=== PATIENT | male | born 1965 | race Caucasian/White ===

== ENCOUNTER 2017-04-13 16:10 | Inpatient (IN) | payer OTHER ==
[2017-04-13] MEDS: KETOROLAC 30 MG INJ IV (16:30)
[2017-04-13 16:34] LABS: ADD MAN DIFF? NO
[2017-04-13 16:36] LABS: WHITE BLOOD COUNT 8.9 10^3/ul (4.8-10.8)
[2017-04-13 16:36] LABS: BASOPHILS % 0.2 % (0.0-2.0); EOSINOPHILS # 0.2 10^3/ul (0.0-0.5); EOSINOPHILS % 1.8 % (0.0-7.0); HEMATOCRIT 42.3 % (42.0-52.0); HEMOGLOBIN 14.8 g/dl (14.0-18.0); LYMPHOCYTES # 2.6 10^3/ul (0.8-2.9); LYMPHOCYTES % 28.7 % (15.0-51.0); MEAN CORPUSCULAR HEMOGLOBIN 30.5 pg (29.0-33.0); MEAN CORPUSCULAR VOLUME 87.2 fl (82.0-101.0); MEAN PLATELET VOLUME 10.1 fl (7.4-10.4); MONOCYTE # 0.7 10^3/ul (0.3-0.9); MONOCYTES % 7.5 % (0.0-11.0); NEUTROPHIL # 5.5 10^3/ul (1.6-7.5); NEUTROPHILS % 61.4 % (39.0-77.0); PLATELET COUNT 208 10^3/UL (140-415); RED BLOOD COUNT 4.85 10^6/ul (4.70-6.10); RED CELL DISTRIBUTION WIDTH 12.5 % (11.5-14.5)
[2017-04-13 16:53] LABS: ANION GAP 17 (8-16); BLOOD UREA NITROGEN 15 mg/dl (7-20); CALCIUM 9.6 mg/dl (8.4-10.2); CARBON DIOXIDE 28 mmol/L (21-31); CHLORIDE 104 mmol/L (97-110); CREATININE 0.73 mg/dl (0.61-1.24); GLUCOSE 111 mg/dl (70-220); POTASSIUM 3.9 mmol/L (3.5-5.1); SODIUM 145 mmol/L (135-144)
[2017-04-13 17:09] LABS: TROPONIN-I < 0.012 ng/ml (0.00-0.12)
[2017-04-13] MEDS ORDERED: NACL 0.9% 3 ML SYG IV (18:30)
[2017-04-13] MEDS ORDERED: ACETAMINOPHEN 325 MG TAB PO (18:30)
[2017-04-13] MEDS: HYDROCODONE/APAP (5/325) TAB PO (18:45)
[2017-04-13] MEDS: morphine 2 MG INJ IV ×2 (18:45→20:44)
[2017-04-13] MEDS: METOPROLOL 25 MG TAB PO (20:43)
[2017-04-13] MEDS: ATORVASTATIN 80 MG TAB PO (20:43)
[2017-04-13 21:56] LABS: CREATINE KINASE 34 IU/L (23-200)
[2017-04-13 22:09] LABS: CK INDEX 0.9
[2017-04-13 22:10] LABS: TROPONIN-I < 0.012 ng/ml (0.00-0.12)
[2017-04-14] MEDS: morphine 2 MG INJ IV ×5 (00:38→20:06)
[2017-04-14 09:04] LABS: ADD MAN DIFF? NO
[2017-04-14] MEDS: ASPIRIN (EC) 81 MG TAB PO (09:04)
[2017-04-14] MEDS: CLOPIDOGREL 75 MG TAB PO (09:04)
[2017-04-14] MEDS: METOPROLOL 25 MG TAB PO ×2 (09:04→20:07)
[2017-04-14] MEDS: HYDROCODONE/APAP (5/325) TAB PO (09:04)
[2017-04-14] MEDS: LISINOPRIL 10 MG TAB PO (09:04)
[2017-04-14] MEDS: ENOXAPARIN 40 MG/0.4 ML SYG SC (09:09)
[2017-04-14 09:12] LABS: WHITE BLOOD COUNT 9.9 10^3/ul (4.8-10.8)
[2017-04-14 09:12] LABS: BASOPHILS % 0.3 % (0.0-2.0); EOSINOPHILS # 0.2 10^3/ul (0.0-0.5); EOSINOPHILS % 2.4 % (0.0-7.0); HEMATOCRIT 35.5 % (42.0-52.0); HEMOGLOBIN 12.5 g/dl (14.0-18.0); LYMPHOCYTES # 1.8 10^3/ul (0.8-2.9); MEAN CORPUSCULAR HEMOGLOBIN 31.2 pg (29.0-33.0); MEAN CORPUSCULAR HGB CONC 35.2 g/dl (32.0-37.0); MEAN CORPUSCULAR VOLUME 88.5 fl (82.0-101.0); MEAN PLATELET VOLUME 10.4 fl (7.4-10.4); MONOCYTE # 0.8 10^3/ul (0.3-0.9); MONOCYTES % 7.9 % (0.0-11.0); PLATELET COUNT 168 10^3/UL (140-415); RED BLOOD COUNT 4.01 10^6/ul (4.70-6.10); RED CELL DISTRIBUTION WIDTH 12.9 % (11.5-14.5)
[2017-04-14 09:31] LABS: CREATINE KINASE 30 IU/L (23-200)
[2017-04-14 09:37] LABS: HEMOGLOBIN A1C 5.4 % (0-5.9)
[2017-04-14 09:41] LABS: CK INDEX 0.8
[2017-04-14 09:43] LABS: ALANINE AMINOTRANSFERASE 43 IU/L (13-69); ALBUMIN 3.4 g/dl (3.3-4.9); ALBUMIN/GLOBULIN RATIO 1.17; ALKALINE PHOSPHATASE 62 IU/L (42-121); ANION GAP 11 (8-16); ASPARTATE AMINO TRANSFERASE 30 IU/L (15-46); BILIRUBIN,INDIRECT 0.4 mg/dl (0-1.1); BILIRUBIN,TOTAL 0.4 mg/dl (0.2-1.3); BLOOD UREA NITROGEN 16 mg/dl (7-20); CALCIUM 8.9 mg/dl (8.4-10.2); CARBON DIOXIDE 29 mmol/L (21-31); CHLORIDE 105 mmol/L (97-110); CHOL/HDL RATIO 3.1 RATIO; CHOLESTEROL 128 mg/dl (100-200); CK-MB 0.24 ng/ml (0.0-2.4); CREATININE 0.81 mg/dl (0.61-1.24); GLUCOSE 114 mg/dl (70-220); HDL CHOLESTEROL 41 mg/dl (28-71); LDL CHOLESTEROL,CALCULATED 71 mg/dl; POTASSIUM 4.2 mmol/L (3.5-5.1); SODIUM 141 mmol/L (135-144); TOTAL PROTEIN 6.3 g/dl (6.1-8.1); TRIGLYCERIDES 82 mg/dl (0-149); TROPONIN-I < 0.012 ng/ml (0.00-0.12)
[2017-04-14] MEDS: ATORVASTATIN 80 MG TAB PO (20:06)
[2017-04-14] MEDS: BENZONATATE 100 MG CAP PO (21:54)
[2017-04-15] MEDS: morphine 2 MG INJ IV ×6 (00:40→21:48)
[2017-04-15] MEDS: ASPIRIN (EC) 81 MG TAB PO (09:14)
[2017-04-15] MEDS: CLOPIDOGREL 75 MG TAB PO (09:14)
[2017-04-15] MEDS: LISINOPRIL 10 MG TAB PO ×2 (09:16→09:17)
[2017-04-15] MEDS: METOPROLOL 25 MG TAB PO ×3 (09:16→20:33)
[2017-04-15] MEDS: ENOXAPARIN 40 MG/0.4 ML SYG SC (09:23)
[2017-04-15] MEDS: HYDROCODONE/APAP (5/325) TAB PO ×2 (15:08→23:34)
[2017-04-15] MEDS: ATORVASTATIN 80 MG TAB PO (20:36)
[2017-04-16] MEDS: morphine 2 MG INJ IV ×4 (01:48→19:41)
[2017-04-16] MEDS: HYDROCODONE/APAP (5/325) TAB PO ×4 (08:38→22:21)
[2017-04-16] MEDS: CLOPIDOGREL 75 MG TAB PO (08:38)
[2017-04-16] MEDS: LISINOPRIL 10 MG TAB PO (08:39)
[2017-04-16] MEDS: ASPIRIN (EC) 81 MG TAB PO (08:39)
[2017-04-16] MEDS: ENOXAPARIN 40 MG/0.4 ML SYG SC (08:42)
[2017-04-16] MEDS: METOPROLOL 25 MG TAB PO ×2 (09:00→20:09)
[2017-04-16] MEDS: ATORVASTATIN 80 MG TAB PO (20:09)
[2017-04-17] MEDS: morphine 2 MG INJ IV ×3 (03:57→21:04)
[2017-04-17] MEDS: HYDROCODONE/APAP (5/325) TAB PO ×5 (05:52→22:41)
[2017-04-17] MEDS: METOPROLOL 25 MG TAB PO ×2 (09:25→21:00)
[2017-04-17] MEDS: ASPIRIN (EC) 81 MG TAB PO (09:25)
[2017-04-17] MEDS: CLOPIDOGREL 75 MG TAB PO (09:25)
[2017-04-17] MEDS: LISINOPRIL 10 MG TAB PO (09:26)
[2017-04-17] MEDS: ENOXAPARIN 40 MG/0.4 ML SYG SC (09:29)
[2017-04-17] MEDS: ATORVASTATIN 80 MG TAB PO (21:03)
[2017-04-18] MEDS: morphine 2 MG INJ IV (04:55)
[2017-04-18] MEDS: CLOPIDOGREL 75 MG TAB PO (10:04)
[2017-04-18] MEDS: HYDROCODONE/APAP (5/325) TAB PO (10:04)
[2017-04-18] MEDS: LISINOPRIL 10 MG TAB PO (10:05)
[2017-04-18] MEDS: METOPROLOL 25 MG TAB PO (10:05)
[2017-04-18] MEDS: ASPIRIN (EC) 81 MG TAB PO (10:05)
[2017-04-18] MEDS: ENOXAPARIN 40 MG/0.4 ML SYG SC (10:11)
== END 2017-04-18 12:45 | DRG 313 ==
LOC: E/R 16:10 → MS4 18:09
DX: R07.9 Chest pain, unspecified (principal); I25.10 Atherosclerotic heart disease of native coronary artery without angina pectoris; I10 Essential (primary) hypertension; F17.210 Nicotine dependence, cigarettes, uncomplicated; Z79.02 Long term (current) use of antithrombotics/antiplatelets; Z79.82 Long term (current) use of aspirin; Z95.5 Presence of coronary angioplasty implant and graft
CPT/HCPCS: 36415; 70450; 71045; 72125; 80048; 80053; 80061; 82550; 82553; 83036; 84484; 85025; 93005; 93306; 96374; 96375; 99285-25; G0378